=== PATIENT | female | born 1980 | race Caucasian/White ===

== ENCOUNTER 2017-11-06 05:42 | Observation (INO) | payer MEDICAID, OTHER ==
[2017-11-04 12:05] LABS: ALBUMIN 4.4 G/DL (3.4-5.0); ALBUMIN/GLOBULIN RATIO 1.3 (1.1-1.5); ALKALINE PHOSPHATASE 73 IU/L (46-116); BLOOD UREA NITROGEN 12 MG/DL (7-18); BUN/CREATININE RATIO 14.1 (6.6-38.0); CALCIUM 9.3 MG/DL (8.5-10.1); CHLORIDE 102 MMOL/L (99-107); CREATININE 0.85 MG/DL (0.40-0.90); PRE OP ALT 35 U/L (30-65); PRE OP ANION GAP 7 (8-16); PRE OP AST 22 U/L (10-37); PRE OP BILIRUB, TOTAL 0.3 MG/DL (0.0-1.0); PRE OP GLUCOSE 91 MG/DL (70-104); PRE OP POTASSIUM 4.2 MMOL/L (3.4-5.1); PRE OP SODIUM 139 MMOL/L (135-145); TOTAL CARBON DIOXIDE 30.1 MMOL/L (24-32); TOTAL PROTEIN 7.8 G/DL (6.4-8.2); eGFR 74 ML/MIN
[2017-11-04 12:11] LABS: HCG SERUM QL NEGATIVE
[2017-11-04 12:13] LABS: BASOPHILS % (AUTO) 0.4 % (0-1); EOSINOPHILS # (AUTO) 0.2 X10'3 (0-0.9); EOSINOPHILS % (AUTO) 2.1 % (0-6); LYMPHOCYTES # (AUTO) 1.8 X10'3 (1.1-4.8); LYMPHOCYTES % (AUTO) 23.9 % (21-51); MEAN CORPUSCULAR HEMOGLOBIN 31.3 PG (27.0-31.0); MEAN CORPUSCULAR HGB CONC 34.5 % (33.0-36.5); MEAN CORPUSCULAR VOLUME 90.6 FL (78-98); MEAN PLATELET VOLUME 8.2 FL (7.4-10.4); MONOCYTES # (AUTO) 0.4 X10'3 (0-0.9); MONOCYTES % (AUTO) 5.6 % (2-12); PRE OP HEMOGLOBIN 14.5 g/dL (12.0-16.0); PRE OP PLATELET COUNT 306 X10'3 (140-440); RED BLOOD COUNT 4.64 X10'6 (4.20-5.60); RED CELL DISTRIBUTION WIDTH 13.4 % (11.5-14.5)
[~2017-11-06] VITALS: Ht 167.6 cm; Wt 73.5 kg
[2017-11-06] VITALS (29 sets, daily range): BP systolic 116–143; BP diastolic 74–102
[~2017-11-06 05:42] MED LIST: BUSP5TAB3 PO; CHOL100024 PO; CYA500T PO; CYCL-394 PO; LOSA50TA37 PO; OXYC-145 PO; SERT50TA PO; SUMA100T PO; ceFOXitin 2 GM ADDvantage bag 100 ML IV ONE; famotidine 20mg tablet PO ONE; scopolamine 1.5mg patch.TD72 TD ONE
[2017-11-06] MEDS ORDERED: LIDOcaine 1% (10mg/ml) 2ml vial ONE (05:59)
[2017-11-06] MEDS: ringers solution, lacted 1,000 ML IV SCH (06:10)
[2017-11-06] MEDS ORDERED: BUPIVAcaine/PF 2.5mg/ml (0.25%) 10ml vial ONE (06:49)
[2017-11-06] MEDS ORDERED: LIDOcaine 1% 30ml preserv. free vial ONE (06:49)
[2017-11-06] MEDS ORDERED: epiNEPHrine 1 mg/ml inj ONE (06:53)
[2017-11-06] MEDS ORDERED: midazolam 2 mg/2 ml injection ONE (07:17)
[2017-11-06] MEDS ORDERED: fentaNYL/PF 50MCG/1 ML 2ML syringe ONE (07:17)
[2017-11-06] MEDS ORDERED: propofol inj 20 ML IV ONE (07:20)
[2017-11-06] MEDS ORDERED: LIDOcaine 2% (20mg/ml) 5ml vial ONE (07:20)
[2017-11-06] MEDS ORDERED: rocuronium 10mg/ml inj IV ONE ×2 (07:20→09:09)
[2017-11-06] MEDS ORDERED: morphine 4 MG/ML inj SYRINge IV PRN ×2 (07:25→09:50)
[2017-11-06] MEDS ORDERED: fentaNYL/PF 50MCG/1 ML 2ML syringe IV PRN (07:25)
[2017-11-06] MEDS ORDERED: labetalol 20mg/4ml (5mg/ml) syringe IV PRN (07:25)
[2017-11-06] MEDS ORDERED: ondansetron/PF 4mg/2ml inj IV PRN (07:25)
[2017-11-06] MEDS ORDERED: ringers solution, lacted 1,000 ML IV SCH (07:25)
[2017-11-06] MEDS ORDERED: hydrALAZINE 20mg/ml inj. IV PRN (07:25)
[2017-11-06] MEDS ORDERED: sevoflurane 250ml liquid IH ONE (07:40)
[2017-11-06] MEDS ORDERED: ondansetron/PF 4mg/2ml inj ONE (07:40)
[2017-11-06] MEDS ORDERED: dexamethasone sod phosphate 10mg/ml inj ONE (07:40)
[2017-11-06] MEDS ORDERED: neostigmine methylsulfate 1 MG/ML 10ml vial ONE (08:08)
[2017-11-06] MEDS ORDERED: glycopyrrolate 0.2mg/ml inj ONE (08:08)
[2017-11-06] MEDS ORDERED: fluoroscein sod 10% (100mg/ml) 5ml vial ONE (09:08)
[2017-11-06] MEDS ORDERED: LORazepam 2 mg/ml vial IV PRN (09:45)
[2017-11-06] MEDS ORDERED: normal saline 500ml IV soln 500 ML IV PRN (09:45)
[2017-11-06] MEDS ORDERED: diphenhydrAMINE 50 mg/ml inj IV PRN (09:45)
[2017-11-06] MEDS ORDERED: metoclopramide 5 mg/ml inj IV PRN (09:45)
[2017-11-06] MEDS ORDERED: temazepam 15mg capsule PO PRN (09:45)
[2017-11-06] MEDS ORDERED: mag hydrox/Alum hydrox/simeth 30ml oral suspension PO PRN (09:45)
[2017-11-06] MEDS ORDERED: cyclobenzaprine 10mg tablet PO PRN (09:50)
[2017-11-06] MEDS ORDERED: oxyCODONE/APAP 5-325mg tablet PO PRN (09:50)
[2017-11-06] MEDS: morphine 4 MG/ML inj SYRINge IV PRN ×2 (10:13→12:29)
[2017-11-06] MEDS: fentaNYL/PF 50MCG/1 ML 2ML syringe IV PRN ×2 (10:34→11:27)
[2017-11-06] MEDS: simethicone 80mg chew tab PO SCH ×2 (13:00→21:48)
[2017-11-06] MEDS: ketorolac trometh. 30mg/ml inj. IV PRN ×2 (15:08→21:48)
[2017-11-06] MEDS: ondansetron/PF 4mg/2ml inj IV PRN (19:32)
[2017-11-06] MEDS ORDERED: busPIRone 5mg tablet PO SCH (20:00)
[2017-11-06] MEDS ORDERED: sertraline 50mg tablet PO SCH (21:00)
[2017-11-06] MEDS: docusate sod 100mg capsule PO SCH (22:20)
[2017-11-06] MEDS ORDERED: busPIRone 15mg tablet PO SCH (22:30)
[2017-11-07] MEDS: ringers solution, lacted 1,000 ML IV SCH (03:20)
[2017-11-07] MEDS: ketorolac trometh. 30mg/ml inj. IV PRN (03:35)
[2017-11-07 04:55] LABS: BASOPHILS % (AUTO) 0.1 % (0-1); EOSINOPHILS # (AUTO) 0.1 X10'3 (0-0.9); EOSINOPHILS % (AUTO) 0.8 % (0-6); HEMATOCRIT 39.1 % (35.0-45.0); HEMOGLOBIN 13.7 g/dl (12.0-16.0); LYMPHOCYTES # (AUTO) 1.6 X10'3 (1.1-4.8); LYMPHOCYTES % (AUTO) 8.7 % (21-51); MEAN CORPUSCULAR HEMOGLOBIN 31.8 PG (27.0-31.0); MEAN CORPUSCULAR HGB CONC 35.1 % (33.0-36.5); MEAN CORPUSCULAR VOLUME 90.7 FL (78-98); MEAN PLATELET VOLUME 8.1 FL (7.4-10.4); MONOCYTES # (AUTO) 0.9 X10'3 (0-0.9); MONOCYTES % (AUTO) 5.2 % (2-12); NEUTROPHILS # (AUTO) 15.6 X10'3 (1.8-7.7); NEUTROPHILS % (AUTO) 85.2 % (42-75); PLATELET COUNT 281 X10'3 (140-440); RED BLOOD COUNT 4.31 X10'6 (4.20-5.60); RED CELL DISTRIBUTION WIDTH 13.8 % (11.5-14.5); WHITE BLOOD COUNT 18.3 X10'3 (4.5-11.0)
[2017-11-07 05:22] LABS: ALBUMIN 3.3 G/DL (3.4-5.0); ANION GAP 12 (8-16); BLOOD UREA NITROGEN 11 MG/DL (7-18); BUN/CREATININE RATIO 12.4 (6.6-38.0); CALCIUM 8.3 MG/DL (8.5-10.1); CHLORIDE 103 MMOL/L (99-107); CREATININE 0.89 MG/DL (0.40-0.90); GLUCOSE 103 MG/DL (70-104); POTASSIUM 3.8 MMOL/L (3.5-5.1); SODIUM 139 MMOL/L (135-145); TOTAL CARBON DIOXIDE 24.5 MMOL/L (24-32); eGFR 71 ML/MIN
[2017-11-07 07:15] VITALS: BP 129/90
[2017-11-07] MEDS: simethicone 80mg chew tab PO SCH ×3 (07:23→18:02)
[2017-11-07] MEDS: docusate sod 100mg capsule PO SCH (07:23)
[2017-11-07] MEDS ORDERED: losartan 50mg tablet PO SCH (08:00)
[2017-11-07] MEDS: ondansetron/PF 4mg/2ml inj IV PRN (08:11)
[2017-11-07] MEDS: oxyCODONE/APAP 5-325mg tablet PO PRN ×2 (08:12→14:20)
[2017-11-07 11:55] VITALS: BP 104/70
[2017-11-07] MEDS ORDERED: busPIRone 15mg tablet PO SCH (21:00)
== END 2017-11-07 19:45 | disposition home or self-care (01) ==
LOC: PAS 05:42 → SUR 3N 09:44
PROVIDERS: ADMIT Obstetrics & Gynecology; ATTEND Obstetrics & Gynecology
DX: N85.7 Hematometra (principal); N30.10 Interstitial cystitis (chronic) without hematuria; G43.909 Migraine, unspecified, not intractable, without status migrainosus; I10 Essential (primary) hypertension; F32.9 Major depressive disorder, single episode, unspecified
CPT/HCPCS: 36415; 58552; 80048; 80053; 84703; 85025; 86885; 86900; 86901; 93005; 96374; 96375; 96376; A4355; A6449; C1758; G0378; J0171; J0694; J1100; J1885; J2001; J2250; J2270; J2405; J2704; J2710; J2765; J3010; J3490; J7120; A6250; A7000

== ENCOUNTER 2021-03-03 17:40 | Emergency (ER) | payer MEDICAID, OTHER ==
[~2021-03-03] VITALS: Ht 167.6 cm; Wt 75.0 kg
[~2021-03-03 17:40] MED LIST changes: -CYA500T PO; +CYAN500T71 PO; -LOSA50TA37 PO; +LOSA50TA64 PO; -ceFOXitin 2 GM ADDvantage bag 100 ML IV ONE; -famotidine 20mg tablet PO ONE; -scopolamine 1.5mg patch.TD72 TD ONE
[2021-03-03] MEDS ORDERED: ketorolac trometh. 30mg/ml inj. IM ONE (18:50)
[2021-03-03 19:01] VITALS: BP 124/120
== END 2021-03-03 19:03 | disposition home or self-care (01) ==
LOC: ER 17:41
DX: S13.4XXA Sprain of ligaments of cervical spine, initial encounter (principal); G89.29 Other chronic pain; Z79.899 Other long term (current) drug therapy; W22.8XXA Striking against or struck by other objects, initial encounter; Y93.89 Activity, other specified; Y92.89 Other specified places as the place of occurrence of the external cause; Y99.8 Other external cause status
CPT/HCPCS: 70450; 72125; 96372; 99285; J1885

== ENCOUNTER 2025-02-21 17:17 | Inpatient (IN) | payer BC, OTHER ==
[~2025-02-21] VITALS: Ht 165.1 cm; Wt 81.8 kg
[2025-02-21 18:11] LABS: MEAN PLATELET VOLUME 7.6 FL (7.4-10.4); RED CELL DISTRIBUTION WIDTH 14.2 % (11.5-14.5)
[2025-02-21 18:24] LABS: CREATININE 1.09 MG/DL (0.40-0.90); TOTAL CARBON DIOXIDE 24.1 MMOL/L (24-32); eCRCL 58 ML/MIN; eGFR 54 ML/MIN
[2025-02-21 20:40] LABS: URINE HCG NEGATIVE (NEG)
[2025-02-21 21:22] LABS: LEUKOCYTE ESTERASE ,URINE NEGATIVE (Neg); NITRITES, URINE NEGATIVE (Neg); OCCULT BLOOD,URINE SMALL (Neg)
[2025-02-21 21:35] LABS: UA COLLECTION TYPE CLN CATCH MIDSTREAM
[2025-02-21 21:38] LABS: SQUAMOUS EPITHELIAL CELL,UR MODERATE /LPF (FEW)
--- NOTE | 2025-02-21 21:56 | Physician Documentation ---
History of Present Illness Chief Complaint: Abdominal Pain Stated Complaint: ABD PAIN Time Seen by MD: 21:46 Mode of Arrival: POV, Ambulatory HPI Patient is seen today with rapidly worsening right lower quadrant abdominal pain that started out his periumbilical pain since yesterday. Patient states she did eat a little avocado around noon today and has been sipping on some body arm or drink throughout the afternoon but currently states he does not have an appetite. She denies any fever or chills. She does admit to prior partial hysterectomy but still has a ovaries. She has no other concern or complaint at this time. She admits to regular bowel and bladder movements as of late. Medication Reconciliation Allergies: Coded Allergies: No Known Allergies (Unverified , 02/21/25) Scheduled Buspirone Hcl* (Buspar*), 15 TAB PO HS, (Reported) Cholecalciferol (Vitamin D3) (Vitamin D3), 5,000 UNIT PO DAILY, (Reported) Cyanocobalamin* (Vitamin B-12*), 2 TAB PO DAILY, (Reported) Losartan Potassium (Losartan Potassium), 1 TAB PO DAILY, (Reported) Sertraline Hcl* (Zoloft*), 2 TAB PO HS, (Reported) Scheduled PRN Cyclobenzaprine HCl (Cyclobenzaprine HCl), 1 TAB PO BID PRN for muscle spasms, (Reported) Oxycodone HCl/Acetaminophen (Percocet 5-325 mg Tablet), 1 TAB PO Q6H PRN for pain, (Reported) Sumatriptan Succinate (Imitrex*), 1 TAB PO PRN PRN for headache, (Reported) Review of Systems Constitutional: Denies: chills, fever, weakness Eyes: Denies: pain, blurred vision ENT: Denies: ear pain, nose pain, throat pain, mouth pain Respiratory: Denies: cough, shortness of breath Cardiovascular: Denies: chest pain, palpitations Gastrointestinal: Denies: abdominal pain, nausea, vomiting Genitourinary: Denies: burning, dysuria Female Genitalia: Denies: vaginal discharge, pelvic pain Neurological: Denies: headache, dizziness Musculoskeletal: Denies: pain, swelling Integumentary: Denies: rash, lesions Allergic/Immunologic: Denies: hives, itching Hematologic/Lymphatic: Denies: no symptoms reported Psychiatric: Denies: depression, anxiety Physical Exam Vital Signs: Temperature: 98.3, Source: Oral, Heart Rate: 73, Respiratory Rate: 16, BP: 149/103, Pulse Oximetry: 98, Weight: 81.820 Oxygen Flow Rate: 0 Physical Exam General: Awake and Alert, no acute distress. HEENT: Conjunctiva pink, Sclera clear, Mucus Membranes moist. Neck: Supple without masses and tenderness. Resp: Unlabored. Lungs clear to auscultation bilaterally. Heart: Regular Rate and rhythm, normal S1 and S2 without murmur, rub or gallop. Abdomen: Patient on exam does have tenderness to palpation of the periumbilical area that radiates to the right lower quadrant. Patient has significant rebound tenderness of the right lower quadrant as well as tenderness to palpation of the right lower quadrant. Patient's abdomen is nondistended and soft. Extremities: No cyanosis,clubbing or edema. Skin: Warm and Dry. Progress Results/Orders Results/Orders Orders - CARIDAD KENNY PAC [place] (02/21/25 ) Ct Abdomen Pelvis (02/21/25 21:53) Vital Signs 02/21/25 02/21/25 02/21/25 02/21/25 17:21 19:11 21:04 21:49 Temp 97.9 98.4 98.3 Pulse 79 73 73 Resp 18 16 16 16 B/P (MAP) 158/95 145/103 (117) 149/103 (118) Pulse Ox 98 98 98 O2 Flow Rate 0 0 Laboratory Tests Test 02/21/25 17:30 02/21/25 17:48 Urine Specimen Description Cln catch midstream Urine Color Yellow Urine Clarity Clear Urine pH 6.0 Urine Specific Ranger 1.015 Urine Protein Negative Urine Glucose (UA) Negative Urine Ketones Negative Urine Occult Blood Small Urine Nitrite Negative Urine Bilirubin Negative Urine Urobilinogen 0.2 Urine Leukocyte Esterase Negative Urine RBC 0-2 Urine WBC 0-4 Urine Squamous Epithelial Cells Moderate Urine Bacteria Few Urine Culture Indicated Not ind Volume Urine Centrifuged 10 ml Urine HCG, Qualitative Negative Urine Comment White Blood Count 12.2 H Red Blood Count 4.77 Hemoglobin 14.1 Hematocrit 42.0 Mean Corpuscular Volume 88.1 Mean Corpuscular Hemoglobin 29.7 Mean Corpuscular Hemoglobin Concent 33.7 Red Cell Distribution Width 14.2 Platelet Count 410 Mean Platelet Volume 7.6 Neutrophils (%) (Auto) 67.1 Lymphocytes (%) (Auto) 25.2 Monocytes (%) (Auto) 6.0 Eosinophils (%) (Auto) 1.2 Basophils (%) (Auto) 0.5 Neutrophils # (Auto) 8.2 H Lymphocytes # (Auto) 3.1 Monocytes # (Auto) 0.7 Eosinophils # (Auto) 0.1 Basophils # (Auto) 0.1 CBC Comment Sodium Level 135 Potassium Level 4.1 Chloride Level 100 Carbon Dioxide Level 24.1 Anion Gap 11 Blood Urea Nitrogen 7 Creatinine 1.09 H Estimated GFR/1.73 m2 54 BUN/Creatinine Ratio 6.4 L Glucose Level 100 Calcium Level 8.9 Total Bilirubin 0.3 Aspartate Amino Transf (AST/SGOT) 28 Alanine Aminotransferase (ALT/SGPT) 50 Alkaline Phosphatase 100 Total Protein 8.0 Albumin 4.4 Globulin 3.6 Albumin/Globulin Ratio 1.2 Lipase 52 Chemistry Comments Medical Decision Making Findings Patient is seen today with rapidly worsening right lower quadrant abdominal pain that started out his periumbilical pain since yesterday. Patient states she did eat a little avocado around noon today and has been sipping on some body arm or drink throughout the afternoon but currently states he does not have an appetite. She denies any fever or chills. She does admit to prior partial hysterectomy but still has a ovaries. She has no other concern or complaint at this time. She admits to regular bowel and bladder movements as of late. I did call Dr. Diallo the surgeon on-call a agreed to see patient in the morning. Patient will be admitted to the hospital for likely appendectomy tomorrow. CT scan showed likely appendicitis without abscess formation or perforation. Departure Disposition: HOME / SELF CARE / HOMELESS Impression: Primary Impression: Acute appendicitis Qualified Codes: K35.30 - Acute appendicitis with localized peritonitis, without perforation or gangrene Condition: Fair Additional Instructions: I did call Dr. Diallo the surgeon on-call a agreed to see patient in the morning. Patient will be admitted to the hospital for likely appendectomy tomorrow. CT scan showed likely appendicitis without abscess formation or perforation. Referrals: NO PRIMARY CARE PROVIDER (PCP) Signature Scribe Signature: No scribe Attestation: No scribe CARIDAD KENNY PAC Feb 21, 2025 21:56
[2025-02-21] MEDS ORDERED: iohexol 300mg/ml 100ml inj. ONE (21:58)
--- NOTE | 2025-02-21 22:44 | RADIOLOGY REPORT ---
Exam: CT CT ABDOMEN PELVIS W/ IV CONTRAST History: RLQ abd pain with rebound Comparison Study: None TECHNIQUE: A digital director of informatics image was obtained. During the uneventful, intravenous administration of c ontrast material, multislice data acquisition was obtained through the abdomen and pelvis. The data s et was subsequently reconstructed into multiplanar reformats. RADIATION DOSE: CTDI vol 25.23 mGy. DLP 1249.13 mGy.cm Findings: Lungs: Minimal basilar atelectasis. Liver: Unremarkable. Spleen: Unremarkable. Pancreas: Unremarkable. Gallbladder: Unremarkable. Adrenals: Unremarkable Kidneys: Right renal cortical scarring. No hydronephrosis. Pelvic Viscera: Prior hysterectomy. Vasculature: Unremarkable. Retroperitoneum: Unremarkable. Bowel: Dilated appendix measuring up to 9 mm with wall hyperemia. A large calcification is seen withi n the cecum. There is mild stranding within the right lower quadrant. There is no abscess. There is no bowel obstruction. Musculoskeletal: Degenerative changes of L4-5 and L5-S1. Soft tissues: Unremarkable Impression: 1. Findings as above raising the possibility of acute appendicitis in the appropriate clinical settin g. Further clinical correlation is suggested. 2. Incidental findings as detailed.
[2025-02-21] MEDS ORDERED: magnesium sulf-water 2g/50mL 50 ML IV PRN (23:10)
[2025-02-21] MEDS ORDERED: mag hydrox/Alum hydrox/simeth 30ml oral suspension PO PRN (23:10)
[2025-02-21] MEDS ORDERED: HYDROcodone/acetaminophen 5mg/325mg tablet PO PRN (23:10)
[2025-02-21] MEDS ORDERED: potassium Cl 40MEQ/1/2NS 520ml 520 ML IV PRN (23:10)
[2025-02-21] MEDS ORDERED: magnesium sulf-water 4G/100mL 100 ML IV PRN (23:10)
[2025-02-21] MEDS ORDERED: magnesium hydroxide 30ml (MOM) UD suspension PO PRN (23:10)
[2025-02-21] MEDS ORDERED: potassium Cl 20 mEq SR tablet PO PRN ×2 (23:10)
[2025-02-21] MEDS ORDERED: magnesium Cl slow-release 64mg tablet PO PRN (23:10)
[2025-02-21] MEDS: morphine 4 MG/ML inj SYRINge IV STA (23:38)
[2025-02-21] MEDS: acetaminophen 1,000mg/100ml IV 100 ML IV STA (23:38)
[2025-02-21] MEDS: ondansetron/PF 4mg/2ml inj IV STA (23:38)
[2025-02-21] MEDS: normal saline 1000ml 1,000 ML IV SCH (23:39)
[2025-02-22] VITALS (24 sets, daily range): BP systolic 102–141; BP diastolic 59–98; PULSE 64–100; RESP 11–18; TEMP 97.4–97.8; O2SAT 92–100
[2025-02-22] MEDS: normal saline 1000ml 1,000 ML IV SCH (01:15)
--- NOTE | 2025-02-22 01:21 | HISTORY AND PHYSICAL-Residence ---
History & Physical Providers to CC Resident Creating Document: DIANE LOFTON RES ~ History of Present Illness Reason for Admit\Complaint: Acute appendicitis History of Present Illness This is a 44-year-old female with past medical history of migraines, anxiety, depression who presents to the ED with right lower quadrant pain since 1 day. Her abdominal pain started yesterday in the umbilical region, 12/23, radiating to the right lower quadrant associated, dull aching, not associated with nausea or vomiting, no fever or chills, no diarrhea or constipation. Today the pain shifted mainly to right lower quadrant, aggravated when she change her positions, no relieving factors. Allergies: Coded Allergies: No Known Allergies (Unverified , 02/21/25) Home Medications Home Medications Active Reported Vitamin D3 (Cholecalciferol (Vitamin D3)) 1,000 Unit Capsule 5,000 Unit PO DAILY Losartan Potassium 50 Mg Tablet 1 Tab PO DAILY 30 Days Percocet 5-325 mg Tablet (Oxycodone HCl/Acetaminophen) 1 Each Tablet 1 Tab PO Q6H PRN Zoloft* (Sertraline HCl) 50 Mg Tablet 2 Tab PO HS Vitamin B-12* (Cyanocobalamin) 500 Mcg Tablet 2 Tab PO DAILY Buspar* (Buspirone HCl) 5 Mg Tablet 15 Tab PO HS Cyclobenzaprine HCl 10 Mg Tablet 1 Tab PO BID PRN Imitrex* (Sumatriptan Succinate) 100 Mg Tablet 1 Tab PO PRN PRN give 1 tablet at onset of headache. May repeat in 2 hours as needed. Do not exceed 200mg/day total. 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) Domestic Violence: Neg ROS Constitutional: Denies: chills, fever, weakness Eyes: Denies: pain, blurred vision ENT: Denies: ear pain, nose pain, throat pain, mouth pain Respiratory: Denies: cough, shortness of breath Cardiovascular: Denies: chest pain, palpitations Gastrointestinal: Denies: abdominal pain, nausea, vomiting Genitourinary: Denies: burning, dysuria Neurological: Denies: headache, dizziness Musculoskeletal: Denies: pain, swelling Integumentary: Denies: rash, lesions Allergic/Immunologic: Denies: hives, itching Hematologic/Lymphatic: Denies: no symptoms reported Psychiatric: Denies: depression, anxiety Exam Vitals: Vital Signs Date Time Temp Pulse Resp B/P (MAP) Pulse Ox O2 Delivery O2 Flow Rate FiO2 02/21/25 23:52 70 16 105/66 (79) 99 02/21/25 21:04 98.3 0 General: General: Well alert, well oriented, not confused, not agitated, not in acute distress, well cooperated during the physical. HEENT: Conjunctive are pink, sclerae clear, no icterus, pupil is equal in both sides, reactive to light, no ear discharge, no pharyngeal erythema or an edema. Neck: Supple, no JVD, no lymphadenopathy and thyromegaly. Chest: Equal air entry on both lungs, no added sounds, no wheeze. Cardiovascular: S1-S2 regular sinus rhythm and, regular rate, no gallops, no rubs, no murmurs Abdomen: No visible peristalsis, Bowel sounds present on auscultation, soft, tenderness on superficial palpation of umbilical area and right lower quadrant region with guarding. No rigidity. Extremities: No obvious deformities, no pitting edema bilaterally, capillary refill intact, peripheral pulsations are intact on both sides Central Nervous System: No focal neurological deficits, no motor or sensory weakness in all 4 extremities, could move all 4 extremities, 2+ deep tendon reflexes, negative Babinski. Musculoskeletal: No joint swelling, deformities, inflammations, and no scoliosis and back tenderness Skin: Warm and dry. Diagnostic Data Last Recorded Lab Results: 02/21/25 1748 02/21/25 1748 Counseling Services Smoking & Tobacco Cessation: > 10 Minutes Advance Care Planning Advanced Care plannin - 30 Minutes (Full code) Additional Plan Assessment: This is a 44-year-old female with past medical history of migraines, anxiety, depression who presents to the ED with right lower quadrant pain since 1 day. Plan: Acute appendicitis Patient does not meet SIRS criteria Modified Zhou score 7: Probably/likely appendicitis (right lower quadrant pain, rebound tenderness, migration of pain, anorexia, leukocytosis >21433) WBC 12.2, creatinine 1.09 Liver function tests normal: Bilirubin 0.3, AST 28, ALT 50, ALP [address] abdomen and pelvis: Dilated appendix measuring up to 9 mm with wall hyperemia. A large calcification is seen within the cecum. There is mild stranding within the right lower quadrant. There is no abscess. There is no bowel obstruction. Impression: 1. Findings as above raising the possibility of acute appendicitis in the appropriate clinical setting. Further clinical correlation is suggested. Plan: Ordered inflammatory markers: ESR CRP, procalcitonin IV fluid hydration with 100 mL/hour normal saline Started antibiotic Zosyn 4.5 g Q 8 H NPO from midnight Dr. Hua informed, will see the patient tomorrow morning. Code status: Full code DVT prophylaxis: SCDs Analgesia/sedation: Morphine/[place] p.r.n. Line/tube: PIV GI prophylaxis: Protonix Nutrition: Regular diet PT: Ordered. Prognosis: Guarded Disposition: Admit to cam Lofton MD PGY1, Internal Medicine [facility] Date of Service: Feb 22, 2025 Billing Provider: JENNIFER ROSS MD,DIANE, RES Feb 22, 2025 01:21
[2025-02-22] MEDS ORDERED: ESCI20TA39 PO (02:43)
[2025-02-22] MEDS ORDERED: TRAZ-251 PO (02:43)
[2025-02-22] MEDS ORDERED: BENZ-111 PO (02:43)
[2025-02-22] MEDS ORDERED: CLON-570 PO (02:43)
[2025-02-22] MEDS ORDERED: OMEP20CA16 PO (02:43)
[2025-02-22] MEDS ORDERED: BUPR-726 PO (02:43)
[2025-02-22 03:50] LABS: MEAN PLATELET VOLUME 7.8 FL (7.4-10.4); RED CELL DISTRIBUTION WIDTH 14.5 % (11.5-14.5)
[2025-02-22 04:06] LABS: CREATININE 1.02 MG/DL (0.40-0.90); TOTAL CARBON DIOXIDE 25.0 MMOL/L (24-32); eCRCL 62 ML/MIN; eGFR 58 ML/MIN
[2025-02-22] MEDS: K and/or MAG REPLACEMENT MC SCH (08:00)
[2025-02-22] MEDS: piperacillin/tazo 4.5gm/100ml 100 ML IV SCH (08:11)
[2025-02-22] MEDS: docusate sod 100mg capsule PO SCH (08:11)
[2025-02-22] MEDS: ondansetron/PF 4mg/2ml inj IV PRN ×2 (09:05→16:56)
--- NOTE | 2025-02-22 10:05 | PROGRESS NOTE ---
Progress Note ID Providers to CC ~ Progress Note Progress Note: pt seen and examined-findings consistent with appendicitis-pt needs bita gonzalez- possible open-discussed procedure including risks/benefits/alternatives CHARLIE RIVERA MD Feb 22, 2025 10:05
[2025-02-22] MEDS ORDERED: ondansetron/PF 4mg/2ml inj IV PRN ×2 (10:15→11:40)
[2025-02-22] MEDS ORDERED: labetalol 20mg/4ml (5mg/ml) syringe IV PRN ×2 (10:15→11:40)
[2025-02-22] MEDS ORDERED: hydrALAZINE 20mg/ml inj. IV PRN ×2 (10:15→11:40)
[2025-02-22] MEDS ORDERED: fentaNYL/PF 50MCG/1 ML 2ML syringe IV PRN ×2 (10:15)
[2025-02-22] MEDS ORDERED: morphine 4 MG/ML inj SYRINge IV PRN ×2 (10:15→11:40)
[2025-02-22] MEDS ORDERED: BUPIVAcaine 2.5mg/ml inj 50ml vial (contains preservative) ONE (10:32)
[2025-02-22] MEDS: ringers solution, lacted 1,000 ML IV SCH ×2 (11:10→11:40)
[2025-02-22] MEDS ORDERED: HYDROmorphone/PF 0.2 MG/ML SYRINGE IV PRN ×2 (11:40→19:45)
[2025-02-22] MEDS ORDERED: midazolam 1 mg/ML 2ml injection ONE (11:45)
[2025-02-22] MEDS ORDERED: fentaNYL/PF 50MCG/1 ML 2ML syringe ONE ×2 (11:45→12:07)
[2025-02-22] MEDS ORDERED: propofol inj 20 ML IV ONE (11:46)
[2025-02-22] MEDS ORDERED: rocuronium 10mg/ml inj IV ONE (11:47)
[2025-02-22] MEDS ORDERED: dexamethasone sod phosphate 4mg/ml inj. ONE (12:00)
[2025-02-22] MEDS ORDERED: ceFOXitin 1000 MG inj ONE ×2 (12:00)
[2025-02-22] MEDS: BUPIVAcaine/PF 2.5 mg/ml (0.25%) 30ml vial IJ ONE (12:25)
[2025-02-22] MEDS ORDERED: ondansetron/PF 4mg/2ml inj ONE (12:41)
--- NOTE | 2025-02-22 13:23 | OPERATIVE REPORT ---
Operative Report Providers to CC ~ Date of Procedure: Feb 22, 2025 Pre-Operative Diagnosis: Acute appendicitis Post-Operative Diagnosis SAME as PRE-Op Procedure Performed bita gonzalez Surgeon: ray fang Anesthesiologist: Hitesh Shepherd Type of Anesthesia: General Findings: appendicitis Estimated Blood Loss: min Specimen Removed: CHARLIE Solo MD Feb 22, 2025 13:22
[2025-02-22] MEDS ORDERED: HYDROcodone/acetaminophen 5mg/325mg tablet PO PRN (13:25)
[2025-02-22] MEDS: HYDROmorphone/PF 0.2 MG/ML SYRINGE IV PRN ×2 (13:32→20:22)
[2025-02-22] MEDS ORDERED: HYDROmorphone inj. 0.5 MG/0.5 ML DISP.SYRIN IV PRN (19:45)
--- NOTE | 2025-02-22 20:02 | PROGRESS NOTE ---
Daily Progress Note Providers to CC ~ Antibiotic Timeout Antibiotic Ordered?: Yes Subjective Patient was seen in her room in surgical unit today. Patient was NPO waiting for the surgery for acute appendicitis. As per patient pain is mainly around the umbilicus and right lower abdomen. She was still having nausea despite of taking Zofran 4 mg dose of Zofran increased to 8 mg today. Objective Vital Signs Date Time Temp Pulse Resp B/P (MAP) Pulse Ox O2 Delivery O2 Flow Rate FiO2 02/22/25 18:40 78 117/73 (88) 93 02/22/25 15:33 18 02/22/25 14:30 97.5 Room Air 02/22/25 14:10 2.0 Result Diagram: 02/22/25 0320 02/22/25 0320 General-patient not in any acute distress, alert awake oriented, age-appropriate HEENT-atraumatic normocephalic, neck supple without elevated JVD, no thyromegaly or carotid bruit. No lymphadenopathy bilaterally. Eyes-no icterus or pallor seen in eyes Chest-clear to auscultation bilaterally, breathing nonlabored no tachypnea, no wheezing, no crepitation, no crackles. Heart-S1-S2 normal, regular heart rate no murmur Abdomen bowel sounds positive on auscultation, soft nondistended , signs of tenderness present around umbilicus and right lower quadrant on palpation, no guarding, no rigidity Skin no active skin rash Neurology-grossly intact, nonfocal alert awake oriented Extremity- no pedal edema able to move all 4 extremities Psychiatry - patient is not confused or agitated cooperated during physical examination Problem\Assessment\Plan Assessment: This is a 44-year-old female with past medical history of migraines, anxiety, depression who presents to the ED with right lower quadrant pain since 1 day. Plan: Acute appendicitis Patient does not meet SIRS criteria Modified Zhou score 7: Probably/likely appendicitis (right lower quadrant pain, rebound tenderness, migration of pain, anorexia, leukocytosis >62202) WBC 12.2, creatinine 1.09 Liver function tests normal: Bilirubin 0.3, AST 28, ALT 50, ALP [address] abdomen and pelvis: Dilated appendix measuring up to 9 mm with wall hyperemia. A large calcification is seen within the cecum. There is mild stranding within the right lower quadrant. There is no abscess. There is no bowel obstruction. Impression: 1. Findings as above raising the possibility of acute appendicitis in the appropriate clinical setting. Further clinical correlation is suggested. Plan: Ordered inflammatory markers: ESR CRP, procalcitonin IV fluid hydration with 100 mL/hour normal saline Started antibiotic Zosyn 4.5 g Q 8 H NPO from midnight Dr. Hua informed, will see the patient tomorrow morning. 02/22/25- status post appendectomy done for acute appendicitis by Dr. Hua today . Code status: Full code DVT prophylaxis: SCDs Analgesia/sedation: Morphine/[place] p.r.n. Line/tube: PIV GI prophylaxis: Protonix Nutrition: Regular diet PT: Ordered. Patient's condition is guarded we will continue to follow patient in a.m. further management as recommended by Dr. Hua. Date of Service: Feb 22, 2025 Billing Provider: MARIA D ACOSTA MD Common Visit Codes: [id number] INP/OBS CARE(HIGH) MARIA D ACOSTA MD Feb 22, 2025 20:02
--- NOTE | 2025-02-22 20:25 | CONSULTATION ---
DATE OF CONSULTATION: 02/22/2025 DICTATING PHYSICIAN: Max Hua MD REASON FOR CONSULTATION: Evaluation of for abdominal pain. HISTORY OF PRESENT ILLNESS: The patient is a 44-year-old female presented to the ER with complaints of abdominal discomfort. CAT scan revealed evidence of acute appendicitis. Surgical evaluation now requested. On further questioning, the patient complains of periumbilical pain that started a few days ago, shifted to the right lower quadrant. ____ nausea or vomiting. No diarrhea. PAST MEDICAL HISTORY: Notable for migraines, anxiety and depression. PAST SURGICAL HISTORY: Unremarkable. HOME MEDICATIONS: Include losartan, Zoloft, BuSpar, cyclobenzaprine, variety of supplements. ALLERGIES: None. SOCIAL HISTORY: Occasional tobacco. Occasional alcohol use. REVIEW OF SYSTEMS: See H and P. PHYSICAL EXAMINATION: GENERAL: Well-nourished female in no distress. VITAL SIGNS: Unremarkable. HEART: Regular rate and rhythm. LUNGS: Clear to auscultation. ABDOMEN: Shows right lower quadrant tenderness. EXTREMITIES: Unremarkable. NEUROLOGIC: Nonfocal. LABORATORY DATA: Hemoglobin is 12, hematocrit of 42, platelet count 410. Chemistries, BUN and creatinine 7 and 1, CO2 is 24. LFTs are unremarkable. IMAGING STUDIES: CT abdomen and pelvis reveals evidence of acute appendicitis. IMPRESSION: Acute appendicitis. PLAN: * Admit. * Hydrate. * IV antibiotics. * Laparoscopic appendectomy. Max Hua MD TID: [id number] RECEIPT: [id number] NATALIA/[place]/EDWARD
--- NOTE | 2025-02-23 02:33 | OPERATIVE REPORT ---
DATE OF SURGERY: 02/22/2025 DICTATING PHYSICIAN: Max Hua MD PREOPERATIVE DIAGNOSIS: Appendicitis. POSTOPERATIVE DIAGNOSIS: Appendicitis. PROCEDURE PERFORMED: Robotic appendectomy. SURGEON: Max Hua MD BROODMARE FOREMAN: None. ANESTHESIA: General/Dr. Shepherd. DRAINS: None. INDICATIONS FOR OPERATION: A 44-year-old female with right lower quadrant pain, felt like acute appendicitis, taken to surgery for laparoscopic appendectomy. INTRAOPERATIVE FINDINGS: Acute appendicitis. DESCRIPTION OF PROCEDURE: The patient was placed supine on the operating room table. After induction of general anesthesia and placement of endotracheal tube, the abdomen was prepped and draped. A supraumbilical incision was then made and a 12-mm port was placed using an open technique. Pneumoperitoneum was begun by insufflation of CO2. Additional ports were then placed, 2 in the left lower quadrant and 1 in the right upper quadrant. The robot was then brought to the field. Camera port docked. Camera placed. Camera targeted. Additional ports were then docked and instruments were placed. The abdomen was explored. Attention was turned to the right lower quadrant. The appendix was found to be inflamed. The cecum was immobilized. The appendiceal cecal junction was identified, isolated, and divided with Endo YOLANDE stapler. The mesentery was likewise ligated with Endo YOLANDE stapler and divided. Hemostasis was found to be adequate. Robotic instruments were removed. Robot was undocked from the field. The appendix was placed in a lap-bag using the laparoscope. The abdomen was copiously irrigated with a large amount of antibiotic-containing solution. Pneumoperitoneum was then evacuated. The appendix was removed and was placed in an Endobag. Wounds were closed in layers. The skin was closed with subcuticular stitch. Dressings were applied. The patient was transferred to recovery in stable condition. Max Hua MD TID: [id number] RECEIPT: [id number] NATALIA/RAUL/EDWARD
[2025-02-23 04:50] LABS: MEAN PLATELET VOLUME 7.7 FL (7.4-10.4); RED CELL DISTRIBUTION WIDTH 14.1 % (11.5-14.5)
[2025-02-23 05:04] LABS: CREATININE 0.77 MG/DL (0.40-0.90); TOTAL CARBON DIOXIDE 23.7 MMOL/L (24-32); eCRCL 82 ML/MIN; eGFR 81 ML/MIN
[2025-02-23 06:00] VITALS: BP 110/73; PULSE 82; RESP 12; TEMP 98.1; O2SAT 97
[2025-02-23 10:00] VITALS: BP 104/65; PULSE 78; RESP 16; TEMP 97.9; O2SAT 96
--- NOTE | 2025-02-23 13:26 | PATHOLOGY REPORT ---
[facility] [address] [place] [address] SURGICAL PATHOLOGY REPORT CaseNumber: [id number] Surgeon:Max Hua M.D. CLINICAL INFORMATION CLINICAL INFORMATION: Not provided. DIAGNOSIS DIAGNOSIS: APPENDIX; ROBOTIC-ASSISTED LAPAROSCOPIC APPENDEC - ACUTE APPENDICITIS WITH TRANSMURAL SEROSITIS. MICROSCOPIC DESCRIPTION MICROSCOPIC DESCRIPTION: A single H&E stained slide showing two cross sections and the proximal tip of the appendix is reviewed. There is an active inflammation extending from the lumen to the serosa. There is no malignancy present. GROSS DESCRIPTION GROSS DESCRIPTION: Received in a container of formalin labeled with the patient's name, number, and "appendix" is a uniform caliber vermiform appendix which measures 7.5 cm long by 0.8 cm in diameter. The serosa is congested. There is approximately 1.5 cm of attached periappendiceal fat. Sectioning reveals a dilated lumen which contains blood and stool but no fecalith. Supervisor [employer] sections including the proximal, mid, and distal portion of the appendix are submitted as A1. The time at which the specimen was removed was 1238. The time at which the specimen was placed in formalin was 1249. Electronically signed by: Myles Benson, 02/23/2025 12:54:00 PM
--- NOTE | 2025-02-23 14:39 | PROGRESS NOTE ---
Progress Note ID Providers to CC ~ Progress Note Progress Note: slow progress/ home in am CHARLIE RIVERA MD Feb 23, 2025 14:39
[2025-02-23 18:00] VITALS: BP 116/72; PULSE 75; RESP 18; TEMP 97.9; O2SAT 97
--- NOTE | 2025-02-23 18:35 | PROGRESS NOTE ---
Daily Progress Note Providers to CC ~ Antibiotic Timeout Antibiotic Ordered?: Yes Subjective Patient is seen in her room she feels her pain is much better since she had the surgery done. Able to ambulate and make it to the bathroom, passing some gas but not much. Currently on clear liquid diet Objective Vital Signs Date Time Temp Pulse Resp B/P (MAP) Pulse Ox O2 Delivery O2 Flow Rate FiO2 02/23/25 08:00 Room Air 02/22/25 22:00 2.0 02/22/25 22:00 97.7 75 16 102/59 (73) 92 Result Diagram: 02/23/2541202/23/25412 General-patient not in any acute distress, alert awake oriented, age-appropriate HEENT-atraumatic normocephalic, neck supple without elevated JVD, no thyromegaly or carotid bruit. No lymphadenopathy bilaterally. Eyes-no icterus or pallor seen in eyes Chest-clear to auscultation bilaterally, breathing nonlabored no tachypnea, no wheezing, no crepitation, no crackles. Heart-S1-S2 normal, regular heart rate no murmur Abdomen bowel sounds positive on auscultation, soft nondistended , signs of tenderness present around surgical site, no guarding, no rigidity Skin no active skin rash Neurology-grossly intact, nonfocal alert awake oriented Extremity- no pedal edema able to move all 4 extremities Psychiatry - patient is not confused or agitated cooperated during physical examination Problem\Assessment\Plan Assessment: This is a 44-year-old female with past medical history of migraines, anxiety, depression who presents to the ED with right lower quadrant pain since 1 day. Plan: Acute appendicitis Patient does not meet SIRS criteria Modified Zhou score 7: Probably/likely appendicitis (right lower quadrant pain, rebound tenderness, migration of pain, anorexia, leukocytosis >99168) WBC 12.2, creatinine 1.09 Liver function tests normal: Bilirubin 0.3, AST 28, ALT 50, ALP [address] abdomen and pelvis: Dilated appendix measuring up to 9 mm with wall hyperemia. A large calcification is seen within the cecum. There is mild stranding within the right lower quadrant. There is no abscess. There is no bowel obstruction. Impression: 1. Findings as above raising the possibility of acute appendicitis in the appropriate clinical setting. Further clinical correlation is suggested. Plan: Ordered inflammatory markers: ESR CRP, procalcitonin IV fluid hydration with 100 mL/hour normal saline Started antibiotic Zosyn 4.5 g Q 8 H NPO from midnight Dr. Hua informed, will see the patient tomorrow morning. 02/22/25- status post appendectomy done for acute appendicitis by Dr. Hua today . 02/23/25- Dr. Hua evaluated the patient and possible discharge home in a.m. as per his note Code status: Full code DVT prophylaxis: SCDs Analgesia/sedation: Morphine/[place] p.r.n. Line/tube: PIV GI prophylaxis: Protonix Nutrition: Regular diet PT: Ordered. Patient's condition is guarded we will continue to follow patient in a.m. further management as recommended by Dr. Hua. Date of Service: Feb 23, 2025 Billing Provider: MARIA D ACOSTA MD Common Visit Codes: [id number] INP/OBS CARE(HIGH) MARIA D ACOSTA MD Feb 23, 2025 18:35
[2025-02-23 20:00] VITALS: RESP 18; O2SAT 97
[2025-02-23 22:00] VITALS: BP 124/72; PULSE 69; RESP 16; TEMP 98.8; O2SAT 96
[2025-02-24 04:37] LABS: MEAN PLATELET VOLUME 7.5 FL (7.4-10.4); RED CELL DISTRIBUTION WIDTH 14.3 % (11.5-14.5)
[2025-02-24 04:56] LABS: CREATININE 0.82 MG/DL (0.40-0.90); TOTAL CARBON DIOXIDE 24.3 MMOL/L (24-32); eCRCL 77 ML/MIN; eGFR 75 ML/MIN
[2025-02-24 06:00] VITALS: BP 124/85; PULSE 67; RESP 18; TEMP 98.1; O2SAT 96
[2025-02-24 10:00] VITALS: BP 118/78; PULSE 71; RESP 18; TEMP 98; O2SAT 97
[2025-02-24] MEDS ORDERED: ACET-1008 PO (12:27)
[2025-02-24] MEDS ORDERED: METR-159 PO (12:29)
[2025-02-24] MEDS ORDERED: IBUP600T52 PO (12:29)
[2025-02-24] MEDS ORDERED: CIPR-259 PO (12:29)
[2025-02-24] MEDS ORDERED: PANT40TA54 PO (12:29)
[2025-02-24] MEDS: HYDROcodone/acetaminophen 10/325mg tab PO PRN (14:57)
--- NOTE | 2025-02-24 19:15 | DISCHARGE SUMMARY ---
Discharge Summary Providers to CC ~ Discharge Summary Admission Diagnosis: Acute appendicitis Hospital Course DATE OF ADMISSION: February 21, 2025 DATE OF DISCHARGE:February 24, 2025 CBC testing done on February 24, 2025 WBC 11.0 hemoglobin 12.3 hematocrit 36.5 sed rate six. Serum chemistry done on February 24, 2025 sodium 142 potassium 3.8 creatinine 0.82 GFR 75 normal liver enzymes procalcitonin less than 0.05. CT ABDOMEN PELVIS-Impression: 1. Findings as above raising the possibility of acute appendicitis in the appropriate clinical setting. Further clinical correlation is suggested. 2. Incidental findings as detailed. Discharge Diagnosis\\Comment: Acute appendicitis, migraine, anxiety / depression Operations\\Procedures: status post appendectomy Consultants: Dr. Hua Complications: none Condition on DC: Stable New Medications: Ciprofloxacin HCl (Cipro) 500 Mg Tablet 1 TAB PO Q12H for 5 Days, #10 TAB Ibuprofen (Ibuprofen) 600 Mg Tablet 1 TAB PO Q8H PRN for pain for 5 Days, #15 TAB 0 Refills with food Metronidazole* (Flagyl*) 500 Mg Tablet 1 TAB PO BID for 5 Days, #10 TAB Pantoprazole Sodium (Pantoprazole Sodium) 40 Mg Tablet.dr 40 MG PO BKF for 10 Days, #10 TAB.SR Changed Medications: Acetaminophen (Tylenol) 325 Mg Tablet 1 TAB PO Q8H PRN for pain or fever for 5 Days, #15 TAB (Changed from: QDAY PRN; 30; 30) Continued Medications: Benzonatate (Benzonatate) 100 Mg Capsule 1 CAP PO TID Bupropion HCl (Bupropion Xl) 150 Mg Tab.er.24h 1 TAB PO DAILY Cholecalciferol (Vitamin D3) (Vitamin D3) 1,000 Unit Capsule 5000 UNIT PO DAILY Clonazepam (Clonazepam) 1 Mg Tablet 1 TAB PO HS PRN for anxiety Cyclobenzaprine HCl (Cyclobenzaprine HCl) 10 Mg Tablet 1 TAB PO BID PRN for muscle spasms, #14 TAB Escitalopram Oxalate (Escitalopram Oxalate) 20 Mg Tablet 1.5 TAB PO DAILY Sumatriptan Succinate (Imitrex*) 100 Mg Tablet 1 TAB PO PRN PRN for headache, TAB give 1 tablet at onset of headache. May repeat in 2 hours as needed. Do not exceed 200mg/day total. Trazodone HCl (Trazodone HCl) 50 Mg Tablet 0.5-2 TAB PO HS for insomnia Discharge Summary: As per admitting provider's history and physical note" This is a 44-year-old female with past medical history of migraines, anxiety, depression who presents to the ED with right lower quadrant pain since 1 day. Her abdominal pain started yesterday in the umbilical region, 12/23, radiating to the right lower quadrant associated, dull aching, not associated with nausea or vomiting, no fever or chills, no diarrhea or constipation. Today the pain shifted mainly to right lower quadrant, aggravated when she change her positions, no relieving factors." During hospitalization patient was treated for Acute appendicitis Patient does not meet SIRS criteria Modified Zhou score 7: Probably/likely appendicitis (right lower quadrant pain, rebound tenderness, migration of pain, anorexia, leukocytosis >28273) WBC 12.2, creatinine 1.09 Liver function tests normal: Bilirubin 0.3, AST 28, ALT 50, ALP [address] abdomen and pelvis: Dilated appendix measuring up to 9 mm with wall hyperemia. A large calcification is seen within the cecum. There is mild str anding within the right lower quadrant. There is no abscess. There is no bowel obstruction. Impression: 1. Findings as above raising the possibility of acute appendicitis in the appropriate clinical setting. Further clinical correlation is suggested. Plan: Ordered inflammatory markers: ESR CRP, procalcitonin IV fluid hydration with 100 mL/hour normal saline Started antibiotic Zosyn 4.5 g Q 8 H NPO from midnight Dr. Hua informed, will see the patient tomorrow morning. 02/22/25- status post appendectomy done for acute appendicitis by Dr. Hua today . 02/23/25- Dr. Hua evaluated the patient and possible discharge home in a.m. as per his note Patient is feeling better she has been afebrile and getting discharged home in stable condition. Patient is seen and examined on the day of discharge. All labs, diagnostic workup and discharge plan discussed with patient and family members in detail before her discharge. All questions and queries answered to the best of my professional medical knowledge. I heard patient's concerns and address appropriately. Patient was cleared by Physical therapy team for home discharge . manager regional sales involved in patient's discharge plan. Dr. Diallo aware and cleared the patient for home discharge . Discharge instructions provided to the patient. Please follow-up with Dr Hua, PCP in outpatient setting and contact Dr. Stark office for appointment. Activity as tolerated. General-patient not in any acute distress, alert awake oriented, age-appropriate HEENT-atraumatic normocephalic, neck supple without elevated JVD, no thyromegaly or carotid bruit. No lymphadenopathy bilaterally. Eyes-no icterus or pallor seen in eyes Chest-clear to auscultation bilaterally, breathing nonlabored no tachypnea, no w heezing, no crepitation, no crackles. Heart-S1-S2 normal, regular heart rate no murmur Abdomen bowel sounds positive on auscultation, soft nondistended , signs of very mild tenderness present around surgical site, no guarding, no rigidity Skin no active skin rash Neurology-grossly intact, nonfocal alert awake oriented Extremity- no pedal edema able to move all 4 extremities Psychiatry - patient is not confused or agitated cooperated during physical examination *Problems/Diagnosis: (1) Acute appendicitis Status: Acute Total Time Spent on D/C: > 30 Minutes Date of Service: Feb 24, 2025 Billing Provider: MARIA D ACOSTA MD Common Visit Codes: 06733-HAO/OBS DISCH DAY >30min Problem Qualifiers (1) Acute appendicitis: Qualified Codes: K35.30 - Acute appendicitis with localized peritonitis, without perforation or gangrene MARIA D ACOSTA MD Feb 24, 2025 19:13
[2025-02-25] MEDS ORDERED: pantoprazole 40mg Tablet.DR PO SCH (07:30)
--- NOTE | 2025-02-25 19:11 | PROGRESS NOTE ---
DATE: 02/24/2025 DICTATING PHYSICIAN: Max Hua MD SUBJECTIVE: A 44-year-old female status post robotic appendectomy, remains on surgical floor. Pain is improving. He is tolerating p.o. Vital signs unremarkable. Abdomen is nondistended. IMPRESSION: Status post robotic appendectomy, doing well. PLAN: Discharge to home. Max Hua MD TID: [id number] RECEIPT: [id number]
== END 2025-02-24 15:30 | disposition home or self-care (01) | DRG 399 ==
LOC: ER 17:18 → ED HOLD 23:11 → SUR 3N 02-22 03:06
PROVIDERS: ADMIT Internal Medicine Critical Care Medicine; ATTEND Internal Medicine
PROC: BW211ZZ Computerized Tomography (CT Scan) of Abdomen and Pelvis using Low Osmolar Contrast (ICD-10-PCS; 2025-02-21)
PROC: 8E0W4CZ Robotic Assisted Procedure of Trunk Region, Percutaneous Endoscopic Approach (ICD-10-PCS; 2025-02-22)
PROC: 0DTJ4ZZ Resection of Appendix, Percutaneous Endoscopic Approach (ICD-10-PCS; principal; 2025-02-22 11:37)
DX: K35.30 Acute appendicitis with localized peritonitis, without perforation or gangrene (principal); G47.00 Insomnia, unspecified; F32.A Depression, unspecified; F41.9 Anxiety disorder, unspecified; G43.909 Migraine, unspecified, not intractable, without status migrainosus
CPT/HCPCS: 96365; 96375; 99285; Z7506; Z7508; 36415; 74177; 80053; 81001; 81025; 82948; 83605; 83690; 83735; 84132; 84145; 85025; 85651; 86140; 87081; 97161; 97530; A4215; A4314; A4615; A4618; A6449; G0378; J0131; J0694; J0780; J1100; J1171; J2250; J2270; J2405; J2470; J2543; J2704; J3010; J3490; J7030; J7120; Q9967